=== PATIENT | female | born 1980 | race Caucasian/White ===

== ENCOUNTER 2023-10-16 12:48 | Emergency (ER) | payer BC, SELFPAY ==
[2023-10-16 12:55] VITALS: BP 108/67; PULSE 60; RESP 18; TEMP 36.6; O2SAT 98; BMI 19.0
[2023-10-16] MEDS: ONDANSETRON 2 MG/ML inj 4 MG IVP (13:50)
[2023-10-16] MEDS: KETOROLAC 30 MG/ML inj IVP (13:50)
[2023-10-16] MEDS: diphenhydrAMINE 50 MG/ML inj 25 MG IVP (13:50)
[2023-10-16] MEDS: 0.9 % SODIUM CHLORIDE 1000 ml 1,000 ML IV (13:50)
--- NOTE | 2023-10-16 14:43 | ED_ITS ---
HPI - General Adult General Chief complaint: Headache/Migraine Stated complaint: Massive migrane Time Seen by Provider: 10/16/23 12:55 Source: patient Mode of arrival: ambulatory Limitations: no limitations History of Present Illness HPI narrative: 43-year-old female coming in today complaining of a migraine headache. Pain is located on the left side of her head and face, this is the usual location. She states that these are her chew who 4 times per month. She has had 2 in the last week which is a bit unusual. She denies fevers or chills, no changes in her hearing or vision. No changes in her appetite. Patient does continue to smoke around 1 pack cigarettes per day. She denies cough or other recent illness. She denies any focal neurologic deficits. Patient takes no prescription medications and no migraine medication. She does take [id number] Excedrin migraine, Tylenol migraine. Related Data Previous Rx's ?Medication ?Instructions ?Recorded sumatriptan succinate 25 mg tablet See Rx Instructions PO .COMPLEX #9 10/16/23 (Imitrex) tabs Allergies Allergy/AdvReac Type Severity Reaction Status Date / Time amoxicillin [From Augmentin] Allergy Verified 10/16/23 12:54 clavulanic acid Allergy Verified 10/16/23 12:54 [From Augmentin] Review of Systems Status of ROS: Reports: 10 or more systems reviewed and unremarkable except as noted in History and below Exam 2 Narrative: Exam Narrative: Thin, well-developed patient in no acute distress. Alert and oriented. Answers questions appropriately. Mood and affect are appropriate. Thoughts are goal oriented and rational. No tangential or magical thinking noted. Patient speaks in full sentences without needing to catch her breath. Speech is not slurred or pressured. Face is symmetric. HEENT: Normocephalic atraumatic. Pupils are equally round reactive to light. Extraocular muscles are intact. Conjunctivae are moist without any icterus noted. Slightly dry mucous membranes. Posterior pharynx is normal. Neck is soft without any lymphadenopathy or thyromegaly. Patient has very poor dentition. Cardiovascular: Heart is regular rate and rhythm S1 and S2 are present without any murmurs. Lungs: Clear to auscultation bilaterally no wheezes rhonchi or rales are appreciated. Patient takes deep breaths without any discomfort. Abdomen: Soft and nontender nondistended with normal bowel sounds. Skin: Well perfused. Const: Vital Signs, click to edit/add: Vital Signs - 24 hr 10/16/23 12:55 10/16/23 15:30 Temperature 98 F Pulse Rate [Pulse Oximeter] 60 58 L Respiratory Rate 18 16 Blood Pressure [Ri ght Upper Arm] 108/67 115/78 Pulse Oximetry 98 10 L Oxygen Delivery Me thod Room Air Course Course ED Course: IV was established and patient received 1000 mg of normal saline, 30 mg of IV Toradol, 25 mg of IV Benadryl, and 4 mg of IV Zofran. Re-examination reveals that this barely helped in that the patient is still very uncomfortable. We proceeded with 8 mg of IV dexamethasone followed by subcutaneous Imitrex. This did improve her pain quite a bit and she was requesting discharge. Vital Signs Vital signs: Initial Vital Signs Temperature 98 F 10/16/23 12:55 Temperature Source Temporal Artery Scan 10/16/23 12:55 Pulse Rate 60 10/16/23 12:55 Pulse Rhythm Regular 10/16/23 12:55 Respiratory Rate 18 10/16/23 12:55 Blood Pressure 108/67 10/16/23 12:55 Blood Pressure Mean 80 10/16/23 12:55 Blood Pressure Position Supine 10/16/23 12:55 Pulse Oximetry 98 10/16/23 12:55 Oxygen Delivery Method Room Air 10/16/23 12:55 Vital Signs Temperature 98 F 10/16/23 12:55 Pulse Rate 60 10/16/23 12:55 Respiratory Rate 18 10/16/23 12:55 Blood Pressure 108/67 10/16/23 12:55 Pulse Oximetry 98 10/16/23 12:55 Oxygen Delivery Method Room Air 10/16/23 12:55 Temperature 98 F 10/16/23 12:55 Pulse Rate 58 L 10/16/23 15:30 Respiratory Rate 16 10/16/23 15:30 Blood Pressure 115/78 10/16/23 15:30 Pulse Oximetry 10 L 10/16/23 15:30 Oxygen Delivery Method Room Air 10/16/23 12:55 Medications Administered Medications: Discontinued Medications Generic Name Dose Route Start Last Admin Trade Name Freq PRN Reason Stop Dose Admin Dexamethasone 8 mg 10/16/23 14:34 10/16/23 14:51 Dexamethasone 4 Mg/Ml Vial IV 10/16/23 14:35 8 mg ONCE ONE Administration Diphenhydramine HCl 25 mg 10/16/23 13:08 10/16/23 13:50 Diphenhydramine 50 Mg/Ml Inj IVP 10/16/23 13:09 25 mg ONCE ONE Administration Sodium Chloride 1,000 mls @ 1,000 mls/hr 10/16/23 13:15 10/16/23 14:18 0.9 % Sodium Chloride 1000 Ml IV 10/16/23 14:14 Infused .Q1H ALIRIO Infusion Ketorolac Tromethamine 30 mg 10/16/23 13:08 10/16/23 13:50 Ketorolac 30 Mg/Ml Inj IVP 10/16/23 13:09 30 mg ONCE ONE Administration Ondansetron HCl 4 mg 10/16/23 13:08 10/16/23 13:50 Ondansetron 2 Mg/Ml Inj IVP 10/16/23 13:09 4 mg ONCE ONE Administration Sumatriptan Succinate 6 mg 10/16/23 14:34 10/16/23 14:51 Sumatriptan 6 Mg/0.5 Ml Inj SUBCUT 10/16/23 14:35 6 mg ONCE ONE Administration Medical Decision Making MDM Narrative Medical decision making narrative: 43-year-old female with migraine headaches. I am going to send the patient home Imitrex to take as needed. Recommend she follow up with her primary care provider this coming week. Discharge Plan Discharge Clinical Impression: Headache, migraine Patient Disposition: Home, Self-Care Condition: Improved Additional Instructions: You will be sent home with Imitrex which is a migraine medication that you take as soon as you feel the migraine coming. It is the same medication you got in the ER today, however in pill form. Recommend you follow-up with your primary care provider this coming week to discuss how your headaches are doing. Make sure to stay well hydrated and get a good night's sleep. Prescriptions: New sumatriptan succinate [Imitrex] 25 mg tablet See Rx Instructions .ROUTE .COMPLEX Qty: 9 0RF Rx Instructions: take 1 tab at onset of headache; if no relief may repeat 1 tab after at least 2 hrs; max = 4 tabs/24 hr Follow Up/Referrals: Provider,Not a Local [Primary Care Provider] - Stand Alone Forms: [employer] Info Instructions
[2023-10-16] MEDS: dexAMETHasone 4 MG/ML VIAL 8 MG IV (14:51)
[2023-10-16] MEDS: SUMAtriptan 6 MG/0.5 ML INJ SUBCUT (14:51)
[2023-10-16 15:30] VITALS: BP 115/78; PULSE 58; RESP 16; O2SAT 10
== END 2023-10-16 15:43 | disposition home or self-care (01) ==
PROVIDERS: Emergency Provider Family Medicine
DX: G43.909 Migraine, unspecified, not intractable, without status migrainosus (principal)
CPT/HCPCS: 96374; 96375; 99284; J1100; J1200; J1885; J2405; J3030; J7030

== ENCOUNTER 2023-11-21 16:21 | Emergency (ER) | payer SELFPAY ==
[2023-11-21 16:27] VITALS: BP 116/69; PULSE 74; RESP 18; TEMP 37.2; O2SAT 98; BMI 18.3
--- NOTE | 2023-11-21 16:31 | ED.GENADULT ---
HPI - General Adult General Chief complaint: Fall/Minor Trauma Stated complaint: R side ribcage injury Time Seen by Provider: 11/21/23 16:23 History of Present Illness HPI narrative: Patient was injured while getting a horse into trailer on Wednesday. Complains of right sided rib pain that is worse with twisting and deep breathing. 43-year-old woman presenting for emergency department with concern rib pain. Specifically the right mid ribs. Hurts to breathe or rotate. 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 No outward bruising or injury noted she says. Pain is such that she is having difficulty sleeping. There has been no hematuria noted. Has been treating with acetaminophen and ibuprofen. No abdominal pain noted. Related Data Home Medications ?Medication ?Instructions ?Recorded ?Confirmed albuterol sulfate 90 mcg/actuation 2 puff inhalation Q4H PRN wheezing 11/21/23 11/21/23 aerosol inhaler (Ventolin HFA) fluticasone 250 mcg-salmeterol 50 1 ea inhalation BID 11/21/23 11/21/23 mcg/dose blistr powdr for inhalation (Advair Diskus) trazodone 100 mg tablet 100 mg PO QPM 11/21/23 11/21/23 Previous Rx's ?Medication ?Instructions ?Recorded sumatriptan succinate 25 mg tablet See Rx Instructions PO .COMPLEX #9 10/16/23 (Imitrex) tabs Allergies Allergy/AdvReac Type Severity Reaction Status Date / Time amoxicillin [From Augmentin] Allergy Verified 10/16/23 12:54 clavulanic acid Allergy Verified 10/16/23 12:54 [From Augmentin] Review of Systems Status of ROS: Reports: 6 or more systems reviewed and unremarkable except as noted in History and below PFSH PFS Social History Smoking Status: Former smoker Do you use any of these nicotine containing products: None How often do you have a drink containing alcohol: never How often do you have six or more drinks on one occasion: Never AUDIT-C Alcohol total score: 0 Non-prescribed substance use: denies use service: No Exam Narrative: Exam Narrative: Pleasant. Slim. Positive. Lungs appear to be clear. Equal expansion and excursion of the chest. Quite tender to palpation along the ribs in the mid axillary line in little anterior in the lower right chest. No abdominal pain. Oppositional compress and testing though does not reveal increase in pain. Const: Vital Signs, click to edit/add: Vital Signs - 24 hr 11/21/23 16:27 Temperature 98.9 F Pulse Rate [Pulse Oximeter] 74 Respiratory Rate 18 Blood Pressure [Ri ght Upper Arm] 116/69 Pulse Oximetry 98 Oxygen Delivery Me thod Room Air Documenting provider has reviewed patient's vital signs: yes Course Vital Signs Vital signs: Initial Vital Signs Temperature 98.9 F 11/21/23 16:27 Temperature Source Temporal Artery Scan 11/21/23 16:27 Pulse Rate 74 11/21/23 16:27 Respiratory Rate 18 11/21/23 16:27 Blood Pressure 116/69 11/21/23 16:27 Blood Pressure Mean 84 11/21/23 16:27 Pulse Oximetry 98 11/21/23 16:27 Oxygen Delivery Method Room Air 11/21/23 16:27 Vital Signs Temperature 98.9 F 11/21/23 16:27 Pulse Rate 74 11/21/23 16:27 Respiratory Rate 18 11/21/23 16:27 Blood Pressure 116/69 11/21/23 16:27 Pulse Oximetry 98 11/21/23 16:27 Oxygen Delivery Method Room Air 11/21/23 16:27 Temperature 98.9 F 11/21/23 16:27 Pulse Rate 74 11/21/23 16:27 Respiratory Rate 18 11/21/23 16:27 Blood Pressure 116/69 11/21/23 16:27 Pulse Oximetry 98 11/21/23 16:27 Oxygen Delivery Method Room Air 11/21/23 16:27 Medications Administered Medications: Discontinued Medications Generic Name Dose Route Start Last Admin Trade Name Freq PRN Reason Stop Dose Admin Lidocaine 1 patch 11/21/23 17:41 11/21/23 18:15 Lidocaine 5% Patch TRANSDERMA 11/21/23 17:42 1 patch ONCE ONE Administration Protocol Medical Decision Making MDM Narrative Medical decision making narrative: I would suspect rib contusion here though still would cause quite a bit of pain. Can certainly image to look for evidence otherwise of a fracture. Review of chest x-ray with rib focus does not reveal any fracture. Did place Carlyle wrap here in the emergency department which did help some with discomfort. Also lidocaine patch. See patient discharge plan for further discussion Medical Records Medical records reviewed: Yes I reviewed the patient's medical records Discharge Plan Discharge Clinical Impression: Chest wall pain, Contusion Patient Disposition: Home, Self-Care Condition: Improved Instructions: Chest Wall Pain (ED) Additional Instructions: If this lidocaine patch seems helpful, can purchase more the counter. Wear Carlyle wrap compression for comfort. Remember that if using this, need to take some deep breaths few times a day to be sure you are expanding your lungs. Follow-up in 7-10 days simply not improved. Can take to 600 mg of ibuprofen or up to 850 mg of acetaminophen per dose. Alternative to the ibuprofen might be up to 375 mg naproxen 2 times daily. Yes. Perhaps your body pillow would be helpful to support your right side to help with her sleep. Prescribing some [facility] as discussed from [employer] Prescriptions: No Action sumatriptan succinate [Imitrex] 25 mg tablet See Rx Instructions .ROUTE .COMPLEX Qty: 9 0RF Rx Instructions: take 1 tab at onset of headache; if no relief may repeat 1 tab after at least 2 hrs; max = 4 tabs/24 hr albuterol sulfate [Ventolin HFA] 90 mcg/actuation HFA aerosol inhaler 2 puff INHALATION Q4H PRN (Reason: wheezing) fluticasone propion-salmeterol [Advair Diskus] 250-50 mcg/dose blister with device 1 ea INHALATION BID trazodone 100 mg tablet 100 mg PO QPM Follow Up/Referrals: Provider,Not a Local [Non-Staff] - Stand Alone Forms: [employer] Info Instructions Discharge Comment: [facility] from [employer]
--- NOTE | 2023-11-21 16:40 | CRLHL7_ITS ---
For Patients: As a result of the Cures Act, medical imaging exams and procedure reports are released immediately into your electronic medical record. You may view this report before your referring provider. If you have questions, please contact your health care provider. INDICATION: Pain after injury. TECHNIQUE: Chest 1 view. COMPARISON: None FINDINGS: Cardiovascular and mediastinum: Heart size and vasculature are normal in caliber and appearance. Mediastinum is within normal limits. Lungs and pleural space: Lungs are clear. No sign of infiltrate or mass. No sign of pleural effusion. No pneumothorax. Bones and soft tissues: No significant findings. IMPRESSION: Unremarkable chest. Dictated by Mo Manuel MD @ 11/21/2023 5:34:21 PM (Electronically Signed)
[2023-11-21] MEDS: LIDOCAINE 5% PATCH 1 PATCH TRANSDERMA (18:15)
== END 2023-11-21 18:23 | disposition home or self-care (01) ==
PROVIDERS: Emergency Provider Family Medicine; PCP Physician Assistant
DX: R07.89 Other chest pain (principal); W55.12XA Struck by horse, initial encounter; Y99.0 Civilian activity done for income or pay
CPT/HCPCS: 71101; 99283; 99284; A9270